=== PATIENT | male | born 1995 | race American Indian/Alaskan Native ===

== ENCOUNTER 2017-07-13 19:18 | Emergency (ER) | payer OTHER ==
[~2017-07-13] VITALS: Ht 177.8 cm; Wt 81.7 kg
[~2017-07-13 19:18] MED LIST: LORA10ER
[2017-07-13] MEDS ORDERED: Percocet 5-3251 EACH PO (21:17)
[2017-07-13] MEDS ORDERED: Keflex500 MG PO (21:17)
== END 2017-07-13 22:15 | disposition home or self-care (01) ==
LOC: ER 19:18
DX: S62.337A Displaced fracture of neck of fifth metacarpal bone, left hand, initial encounter for closed fracture (principal); W22.8XXA Striking against or struck by other objects, initial encounter
CPT/HCPCS: 29125; 73130; 96372; 99283; J0690

== ENCOUNTER → 2019-08-24 | Outpatient (CLI) | payer OTHER, BC ==
[~2019-08-24] MED LIST changes: +Keflex500 MG PO; +Percocet 5-3251 EACH PO
[2019-08-25 20:09] LABS: CHLAMYDIA TRACHOMATIS, NAA Negative (Negative); NEISSERIA GONORRHOEAE, NAA Negative (Negative)
== END | disposition home or self-care (01) ==
LOC: LAB EV 15:47 → LAB SHORT 15:47
PROVIDERS: Physician Assistant
DX: Z72.51 High risk heterosexual behavior (principal)
CPT/HCPCS: 87491; 87591